=== PATIENT | male | born 1970 | race Caucasian/White ===

== ENCOUNTER 2016-08-02 07:20 | Emergency (ER) | payer MEDICAID ==
[2016-08-02 09:19] VITALS: BP 134/95
--- NOTE | 2016-08-02 09:26 | ED ---
Upper Extremity Pain - HPI Summary HPI Summary: Patient has a history of neck pain and transient N/T with a deep ache in his right arm. He awoke this morning with pain and since he is not sleeping he came in for evaluation. He denies CP, SOB, CARR or lack of function in the arm, but usually his pain improves with position change. He denies trauma or change in activity level, although he does work two jobs. He does not have insurance so he has been unable to afford to see Dr. Ray, who is his PCP. He declines imaging. - History of Current Complaint Chief Complaint: EDExtremityUpper Stated Complaint: RIGHT ARM NUMBESS Time Seen by Provider: 08/02/16 08:38 Hx Obtained From: Patient Mechanism Of Injury: Unknown Onset/Duration: Atraumatic, Worse Since - last week Timing: Intermittent, Lasting Minutes Severity Initially: Mild Severity Currently: Moderate Pain Location: Arm Character: Aching Aggravating Factor(s): Nothing Alleviating Factor(s): Nothing Associated Signs & Symptoms: Positive: Numbness/Tingling Related History: Dominant Hand Right - Allergies/Home Medications Allergies/Adverse Reactions: Allergies Allergy/AdvReac Type Severity Reaction Status Date / Time No Known Allergies Allergy Verified 06/04/15 18:44 PMH/Surg Hx/FS Hx/Imm Hx Endocrine/Hematology History: Denies: Hx Diabetes Cardiovascular History: Denies: Hx Congestive Heart Failure, Hx Hypertension History: Denies: Hx Renal Disease Musculoskeletal History: Reports: Other Musculoskeletal History - neck pain - Surgical History Surgery Procedure, Year, and Place: CHOLECYSTECTOMY Infectious Disease History: No Infectious Disease History: Denies: Traveled Outside the [place] in Last 30 Days - Family History Known Family History: Positive: None - Social History Occupation: Employed Full-time Lives: With Family Alcohol Use: None Substance Use Type: Reports: None Smoking Status (MU): Heavy Every Day Tobacco Smoker Type: Cigarettes Amount Used/How Often: 1/2 PPD Have You Smoked in the Last Year: Yes Cessation Counseling: Patient Advised to Stop Review of Systems Negative: Fever, Chills Negative: Chest Pain Negative: Shortness Of Breath Positive: Myalgia. Negative: Decreased ROM, Edema Positive: Paresthesia. Negative: Weakness, Numbness All Other Systems Reviewed And Are Negative: Yes Physical Exam Triage Information Reviewed: Yes Vital Signs On Initial Exam: Initial Vitals Temp Pulse Resp BP Pulse Ox 96.4 F 75 20 144/113 97 08/02/16 07:22 08/02/16 07:22 08/02/16 07:22 08/02/16 07:22 08/02/16 07:22 Vital Signs Reviewed: Yes Appearance: Positive: Well-Appearing, No Pain Distress, Obese Skin: Positive: Warm, Skin Color Reflects Adequate Perfusion, Dry, Soft Head/Face: Positive: Normal Head/Face Inspection Eyes: Positive: EOMI, CHRISTIANO, Conjunctiva Clear Neck: Positive: Supple, Nontender, No Lymphadenopathy Respiratory/Lung Sounds: Positive: Clear to Auscultation, Breath Sounds Present Cardiovascular: Positive: RRR Musculoskeletal: Positive: Strength/ROM Intact - 5/5 bilaterally in UE, Pain @ - I can not reproduce his pain. Negative: Edema Right Neurological: Positive: Sensory/Motor Intact, Alert, Oriented to Person Place, Time, Reflexes Intact, NV Bundle Intact Distally Psychiatric: Positive: Affect/Mood Appropriate AVPU Assessment: Alert - Hutchinson Coma Scale Coma Scale Total: 15 Diagnostics - Vital Signs Vital Signs Temp Pulse Resp BP Pulse Ox 08/02/16 08:30 80 134/95 97 08/02/16 08:00 70 116/77 96 08/02/16 07:46 71 97 08/02/16 07:43 116/93 08/02/16 07:26 96.4 F 75 20 144/113 98 08/02/16 07:22 96.4 F 75 20 144/113 97 - Laboratory Lab Statement: Any lab studies that have been ordered have been reviewed, and results considered in the medical decision making process. Course/Dx - Diagnoses Differential Diagnosis/HQI/PQRI: Positive: Arthritis, Bursitis, Contusion, Hematoma, Laceration, Strain, Sprain Provider Diagnoses: Cervical radiculopathy Discharge - Discharge Plan Condition: Stable Disposition: HOME Prescriptions: Gabapentin CAP(*) [Neurontin 100 mg CAP(*)] 100 mg PO DAILY #90 cap Patient Education Materials: Cervical Radiculopathy (ED) Forms: *Work Release Referrals: Oral Ray MD [Primary Care Provider] - Additional Instructions: Please use the medication as prescribed and follow-up with Dr. Ray when your insurance is approved. Return to the emergency department if symptoms worsen.
== END 2016-08-02 09:46 | disposition home or self-care (01) ==
LOC: ED 07:20
DX: M54.12 Radiculopathy, cervical region (principal); F17.210 Nicotine dependence, cigarettes, uncomplicated
CPT/HCPCS: 93005; 99282